=== PATIENT | male | born 1990 | race Caucasian/White ===

== ENCOUNTER 2017-03-03 22:53 | Emergency (ER) | payer OTHER | END 2017-03-04 00:23 | disposition left against medical advice (07) | LOC: ER1 22:53 | DX: Z53.21 Procedure and treatment not carried out due to patient leaving prior to being seen by health care provider (principal) ==

== ENCOUNTER 2017-03-11 20:24 | Emergency (ER) | payer OTHER | END 2017-03-11 21:05 | disposition home or self-care (01) | LOC: ER1 20:24 | DX: L02.415 Cutaneous abscess of right lower limb (principal) | CPT/HCPCS: 99282 ==

== ENCOUNTER 2022-05-13 14:47 | Emergency (ER) | payer OTHER ==
[2022-05-13 15:32] LABS: HEMOGLOBIN 13.1 gm/dl (14.0-17.5); RED BLOOD COUNT 4.77 M/UL (4.20-5.50); WHITE BLOOD COUNT 8.1 K/UL (4.5-11.0)
[2022-05-13 15:49] LABS: BUN/CREATININE RATIO 16 (0-10)
[2022-05-13] MEDS ORDERED: ZOFRAN ODT 4 MG4 MG PO (16:33)
[2022-05-13] MEDS ORDERED: IBUPROFEN600 MG PO (16:33)
== END 2022-05-13 16:35 | disposition home or self-care (01) ==
LOC: ER1 14:47
PROVIDERS: Physician Assistant
DX: U07.1 COVID-19 (principal)
CPT/HCPCS: 0240U; 71045; 80053; 85025; 87081; 87880; 96361; 96374; 99283; J1885